=== PATIENT | female | born 1980 | race Caucasian/White ===

== ENCOUNTER 2018-11-09 14:30 | Emergency (ER) | payer MEDICAID ==
[~2018-11-09] VITALS: Ht 167.6 cm; Wt 72.7 kg
[2018-11-09 17:40] LABS: BASOPHILS % (AUTO) 0.5 % (0.0-2.0); EOSINOPHILS % (AUTO) 0.4 % (1.0-6.0); HEMATOCRIT 36.1 % (36-46); HEMOGLOBIN 12.5 g/dL (12.0-16.0); LYMPHOCYTES # (AUTO) 1.3 K/uL (1.0-4.8); LYMPHOCYTES % (AUTO) 16.6 % (22.0-44.0); MEAN CORPUSCULAR HGB CONC 34.5 G/dL (31.0-37.0); MEAN CORPUSCULAR VOLUME 93 fL (80-100); MONOCYTES # (AUTO) 0.6 K/uL (0.1-1.0); MONOCYTES % (AUTO) 7.2 % (2.0-9.0); NEUTROPHILS # (AUTO) 6.1 K/uL (1.8-7.7); NEUTROPHILS % (AUTO) 75.3 % (40.0-70.0); PLATELET COUNT (AUTO) 331 K/uL (150-450); RED CELL DISTRIBUTION WIDTH 12.8 % (11.5-14.5)
[2018-11-09] MEDS ORDERED: HALOPERIDOL 5 MG TABLET PO PRN (17:45)
[2018-11-09] MEDS ORDERED: ZOLPIDEM TARTRATE 10 MG TABLET PO PRN (17:45)
[2018-11-09] MEDS ORDERED: LORazepam 2 MG TABLET PO PRN (17:45)
[2018-11-09] MEDS ORDERED: ACETAMINOPHEN 325 MG TABLET PO PRN (17:45)
[2018-11-09] MEDS ORDERED: IBUPROFEN 400 MG TABLET PO PRN (17:45)
[2018-11-09 17:51] LABS: ANION GAP 11 mmol/L (8-16); CALCIUM, TOTAL 8.9 mg/dL (8.8-10.5); CARBON DIOXIDE 23 mmol/L (22-29); CHLORIDE 106 mmol/L (98-107); CREATININE 0.82 mg/dL (0.60-1.30); GLOMERULAR FILTR. RATE CALC > 60 mL/min (>60); GLUCOSE,RANDOM 91 mg/dL (70-110); POTASSIUM 3.8 mmol/L (3.5-5.1); SODIUM SERUM 140 mmol/L (136-145); UREA NITROGEN, BLOOD 13 mg/dL (7-18)
[2018-11-09 18:03] LABS: ALANINE AMINOTRANSFERASE 25 U/L (12-78); ALBUMIN 3.6 g/dL (3.4-5.0); ALKALINE PHOSPHATASE 55 U/L (46-116); ASPARTATE AMINOTRANSFERASE 26 U/L (15-37); BILIRUBIN,TOTAL 0.5 mg/dL (0.1-1.0); HCG,QUANTITATIVE < 1 mIU/mL (0-6)
[2018-11-09 19:27] LABS: APPEARANCE,URINE CLEAR (CLEAR); BILIRUBIN,URINE NEGATIVE (NEGATIVE); GLUCOSE, URINE (UA) NEGATIVE (NEGATIVE); KETONES,URINE NEGATIVE (NEGATIVE); LEUKOCYTE ESTERASE ,URINE NEGATIVE (NEGATIVE); NITRATE,URINE NEGATIVE (NEGATIVE); OCCULT BLOOD,URINE NEGATIVE (NEGATIVE); PH,URINE 6.5 (5.0-8.0); PROTEIN,URINE NEGATIVE (NEGATIVE); UROBILINOGEN,URINE 0.2 mg/dL (<=1.0)
[2018-11-09 19:31] LABS: AMPHET/METH SCREEN,URINE NEGATIVE (NEGATIVE); BARBITURATE SCREEN, URINE NEGATIVE (NEGATIVE); BENZODIAZEPINES SCREEN,URINE NEGATIVE (NEGATIVE); CANNABINOID SCREEN,URINE NEGATIVE (NEGATIVE); COCAINE SCREEN,URINE NEGATIVE (NEGATIVE); METHADONE SCREEN, URINE NEGATIVE (NEGATIVE); OPIATE SCREEN,URINE NEGATIVE (NEGATIVE)
[2018-11-09 19:32] LABS: BACTERIA,URINE Few /HPF (None Seen); PHENCYCLIDINE SCREEN,URINE NEGATIVE (NEGATIVE); RBC,URINE 0-2 /HPF (0-2); SQUAMOUS EPITHELIAL CELL,UR Moderate /LPF (None Seen); WBC,URINE 0-2 /HPF (0-5)
[2018-11-09 19:57] VITALS: BP 117/78
== END 2018-11-09 20:19 | disposition home or self-care (01) ==
LOC: EMS 14:31
DX: F43.10 Post-traumatic stress disorder, unspecified (principal); F41.9 Anxiety disorder, unspecified; F20.9 Schizophrenia, unspecified
CPT/HCPCS: 36415; 80053; 80307; 81001; 84702; 85025; 99285; G0480

== ENCOUNTER 2023-03-12 10:53 | Inpatient (IN) | payer MEDICAID ==
[~2023-03-12] VITALS: Ht 167.6 cm; Wt 59.0 kg
[2023-03-12 15:28] LABS: APPEARANCE,URINE HAZY (CLEAR); BILIRUBIN,URINE NEGATIVE (NEGATIVE); GLUCOSE, URINE (UA) NEGATIVE (NEGATIVE); KETONES,URINE NEGATIVE (NEGATIVE); LEUKOCYTE ESTERASE ,URINE LARGE (NEGATIVE); NITRATE,URINE NEGATIVE (NEGATIVE); OCCULT BLOOD,URINE NEGATIVE (NEGATIVE); PH,URINE 5.5 (5.0-8.0); PROTEIN,URINE NEGATIVE (NEGATIVE); SPECIFIC GRAVITIY, URINE 1.007 (1.003-1.030); UROBILINOGEN,URINE <=1.0 mg/dL (<=1.0)
[2023-03-12] MEDS ORDERED: LOPERAMIDE HCL 2 MG CAPSULE PO PRN (15:30)
[2023-03-12] MEDS ORDERED: ACETAMINOPHEN 325 MG TABLET PO PRN (15:30)
[2023-03-12] MEDS ORDERED: HydrOXYzine PAMOATE 50 MG CAPSULE PO PRN (15:30)
[2023-03-12] MEDS ORDERED: MAG HYDROX/AL HYDROX/SIMETH ES 30 ML SUSPENSION UDCUP PO PRN (15:30)
[2023-03-12] MEDS ORDERED: DiphenhydrAMINE HCL 50 MG/ML VIAL IM ONE (15:30)
[2023-03-12] MEDS ORDERED: HALOPERIDOL LACTATE 5 MG/ML VIAL IM ONE (15:30)
[2023-03-12] MEDS ORDERED: ZOLPIDEM TARTRATE 10 MG TABLET PO PRN (15:30)
[2023-03-12] MEDS ORDERED: PROMETHAZINE HCL 25 MG TABLET PO PRN (15:30)
[2023-03-12] MEDS ORDERED: TUBERCULIN, PURIFIED PROTEIN DERIVATIVE 5 TU/0.1 ML SYRINGE ID ONE (15:30)
[2023-03-12] MEDS ORDERED: MAGNESIUM HYDROXIDE SUSPENSION 30 ML UDCUP PO PRN (15:30)
[2023-03-12] MEDS ORDERED: LORazepam 2 MG/ML VIAL IM ONE (15:30)
[2023-03-12] MEDS ORDERED: OLANZapine 5 MG RAPDIS TABLET PO PRN (15:30)
[2023-03-12] MEDS ORDERED: GuaiFENesin/D-METHORPHAN [SUGAR-FREE] 200-20MG/10 ML SYRUP UDCUP PO PRN (15:30)
[2023-03-12 15:55] LABS: AMPHET/METH SCREEN,URINE NEGATIVE (NEGATIVE); BARBITURATE SCREEN, URINE NEGATIVE (NEGATIVE); BENZODIAZEPINES SCREEN,URINE NEGATIVE (NEGATIVE); CANNABINOID SCREEN,URINE POSITIVE (NEGATIVE); COCAINE SCREEN,URINE NEGATIVE (NEGATIVE); METHADONE SCREEN, URINE NEGATIVE (NEGATIVE); OPIATE SCREEN,URINE NEGATIVE (NEGATIVE); PHENCYCLIDINE SCREEN,URINE NEGATIVE (NEGATIVE)
[2023-03-12 15:57] LABS: BACTERIA,URINE Moderate /HPF (None Seen); RBC,URINE 0-2 /HPF (0-2); SQUAMOUS EPITHELIAL CELL,UR Few /LPF (None Seen)
[2023-03-12 16:03] LABS: COVID AG,FIA SOURCE NASOPHARYNGEAL
[2023-03-12 20:07] LABS: BASOPHILS % (AUTO) 0.5 % (0.0-2.0); EOSINOPHILS % (AUTO) 1.7 % (1.0-6.0); HEMATOCRIT 39.1 % (36-46); HEMOGLOBIN 13.2 g/dL (12.0-16.0); LYMPHOCYTES # (AUTO) 2.4 K/uL (1.0-4.8); LYMPHOCYTES % (AUTO) 28.2 % (22.0-44.0); MEAN CORPUSCULAR HEMOGLOBIN 33.3 pg (26.0-34.0); MEAN CORPUSCULAR HGB CONC 33.9 G/dL (31.0-37.0); MEAN CORPUSCULAR VOLUME 98 fL (80-100); MONOCYTES # (AUTO) 0.6 K/uL (0.1-1.0); MONOCYTES % (AUTO) 7.1 % (2.0-9.0); NEUTROPHILS # (AUTO) 5.3 K/uL (1.8-7.7); NEUTROPHILS % (AUTO) 62.5 % (40.0-70.0); PLATELET COUNT (AUTO) 350 K/uL (150-450); RED BLOOD CELL COUNT(AUTO) 3.98 MIL/uL (4.00-5.20); RED CELL DISTRIBUTION WIDTH 11.8 % (11.5-14.5)
[2023-03-12 20:16] LABS: ANION GAP 8 mmol/L (8-16); CALCIUM, TOTAL 8.6 mg/dL (8.8-10.5); CARBON DIOXIDE 25 mmol/L (22-29); CHLORIDE 102 mmol/L (98-107); CREATININE 0.86 mg/dL (0.60-1.30); GLOMERULAR FILTR. RATE CALC > 60 mL/min (>60); GLUCOSE,RANDOM 98 mg/dL (70-110); POTASSIUM 3.8 mmol/L (3.5-5.1); SODIUM SERUM 135 mmol/L (136-145)
[2023-03-12 20:22] LABS: ALBUMIN 3.4 g/dL (3.4-5.0); ALKALINE PHOSPHATASE 54 U/L (46-116); ASPARTATE AMINOTRANSFERASE 25 U/L (15-37); BILIRUBIN,TOTAL 0.6 mg/dL (0.1-1.0); TOTAL PROTEIN, SERUM 6.6 g/dL (6.4-8.2)
[2023-03-12 20:38] LABS: ALANINE AMINOTRANSFERASE 23 U/L (12-78)
[2023-03-12] MEDS: THIAMINE 100 MG TABLET PO SCH (20:49)
[2023-03-12] MEDS: MELATONIN 5 MG TABLET PO SCH (20:49)
[2023-03-12] MEDS: OLANZapine 5 MG RAPDIS TABLET PO SCH (20:50)
[2023-03-13] MEDS: CEPHALEXIN MONOHYDRATE 500 MG CAPSULE PO SCH ×2 (08:19→16:41)
[2023-03-13] MEDS: MULTIVITAMINS WITH MINERALS, THERAPEUTIC TABLET PO SCH (08:19)
[2023-03-13] MEDS: THIAMINE 100 MG TABLET PO SCH ×2 (08:19→16:41)
[2023-03-13] MEDS: OMEGA-3/DHA/EPA/FISH OIL 1,000 MG CAPSULE PO SCH (08:19)
[2023-03-13] MEDS: FOLIC ACID 1 MG TABLET PO SCH (08:20)
[2023-03-13] MEDS: NALTREXONE HCL 50 MG TABLET PO SCH (08:20)
[2023-03-13 08:21] LABS: HEMOGLOBIN A1C 4.5 % (3.8-5.6)
[2023-03-13] MEDS: LORazepam 2 MG TABLET PO PRN (08:21)
[2023-03-13 08:34] LABS: FREE T4 (FREE THYROXINE) 1.2 ng/dL (0.76-1.46); THYROID STIMULATING HORMONE 2.12 uIU/mL (0.36-3.74)
[2023-03-13 08:56] VITALS: BP 100/60; PULSE 87; RESP 18; TEMP 97.7; O2SAT 98
[2023-03-13 09:00] VITALS: BP 100/60; PULSE 87; RESP 18; TEMP 97.7; O2SAT 98
[2023-03-13] MEDS: OLANZapine 5 MG RAPDIS TABLET PO SCH (20:11)
[2023-03-13] MEDS: MELATONIN 5 MG TABLET PO SCH (20:11)
[2023-03-13 20:28] VITALS: BP 102/72; PULSE 75; RESP 18; TEMP 97.8; O2SAT 95
[2023-03-14] MEDS: LORazepam 2 MG TABLET PO PRN ×2 (06:21→16:18)
[2023-03-14 08:33] VITALS: BP 107/64; PULSE 100; RESP 18; TEMP 97.6; O2SAT 97
[2023-03-14] MEDS: FOLIC ACID 1 MG TABLET PO SCH (08:53)
[2023-03-14] MEDS: OMEGA-3/DHA/EPA/FISH OIL 1,000 MG CAPSULE PO SCH (08:53)
[2023-03-14] MEDS: MULTIVITAMINS WITH MINERALS, THERAPEUTIC TABLET PO SCH (08:53)
[2023-03-14] MEDS: CEPHALEXIN MONOHYDRATE 500 MG CAPSULE PO SCH ×2 (08:53→16:24)
[2023-03-14] MEDS: THIAMINE 100 MG TABLET PO SCH ×2 (08:53→16:18)
[2023-03-14] MEDS: NALTREXONE HCL 50 MG TABLET PO SCH (08:53)
[2023-03-14] MEDS ORDERED: OLAN5TAB94 PO (16:13)
[2023-03-14] MEDS ORDERED: OMEG-135 PO (16:13)
[2023-03-14] MEDS ORDERED: MELA5TAB40 PO (16:13)
[2023-03-14] MEDS ORDERED: NALT50TA PO (16:13)
[2023-03-14] MEDS ORDERED: OLAN10TA26 PO (16:15)
[2023-03-14] MEDS ORDERED: BUPR-50 PO (16:16)
[2023-03-14] MEDS: MELATONIN 5 MG TABLET PO SCH (20:11)
[2023-03-14 20:19] VITALS: BP 140/99; PULSE 103; RESP 18; TEMP 97.6; O2SAT 98
[2023-03-14] MEDS ORDERED: OLANZapine 10 MG RAPDIS TABLET PO SCH (21:00)
[2023-03-15 08:19] VITALS: BP 120/66; PULSE 79; RESP 16; TEMP 97.6; O2SAT 98
[2023-03-15] MEDS: NALTREXONE HCL 50 MG TABLET PO SCH (08:34)
[2023-03-15] MEDS: THIAMINE 100 MG TABLET PO SCH ×2 (08:34→16:31)
[2023-03-15] MEDS: OMEGA-3/DHA/EPA/FISH OIL 1,000 MG CAPSULE PO SCH (08:34)
[2023-03-15] MEDS: FOLIC ACID 1 MG TABLET PO SCH (08:34)
[2023-03-15] MEDS: CEPHALEXIN MONOHYDRATE 500 MG CAPSULE PO SCH ×2 (08:34→16:31)
[2023-03-15] MEDS: MULTIVITAMINS WITH MINERALS, THERAPEUTIC TABLET PO SCH (08:35)
[2023-03-15] MEDS ORDERED: BuPROPion HCL XL 150 MG ER TABLET PO SCH (09:00)
[2023-03-15] MEDS: LORazepam 2 MG TABLET PO PRN (10:05)
[2023-03-15 12:26] VITALS: BP 122/73; PULSE 105; RESP 18; TEMP 98; O2SAT 99
[2023-03-15 12:52] VITALS: BP 130/80; PULSE 105; RESP 18; TEMP 98.2; O2SAT 99
[2023-03-15 13:00] VITALS: BP 118/77; PULSE 100; RESP 18; TEMP 98; O2SAT 99
[2023-03-15 13:50] VITALS: BP 120/74; PULSE 96; RESP 16; TEMP 98.2; O2SAT 99
[2023-03-15 14:20] VITALS: BP 124/68; PULSE 98; RESP 16; TEMP 98; O2SAT 100
[2023-03-15] MEDS ORDERED: CEPH-558 PO (17:29)
== END 2023-03-15 18:03 | disposition home or self-care (01) | DRG 750 ==
LOC: EMS 10:53 → EDUNIT# 10:53 → B3A 22:04
PROVIDERS: ADMIT Psychiatry & Neurology Psychiatry; ATTEND Psychiatry & Neurology Psychiatry
DX: F25.9 Schizoaffective disorder, unspecified (principal); F12.90 Cannabis use, unspecified, uncomplicated; Z20.822 Contact with and (suspected) exposure to COVID-19; F32.A Depression, unspecified; F41.9 Anxiety disorder, unspecified; G47.00 Insomnia, unspecified; N39.0 Urinary tract infection, site not specified; K59.00 Constipation, unspecified; Z72.0 Tobacco use; Z55.9 Problems related to education and literacy, unspecified; Z71.6 Tobacco abuse counseling; Z59.9 Problem related to housing and economic circumstances, unspecified; Z63.9 Problem related to primary support group, unspecified; Z65.3 Problems related to other legal circumstances
CPT/HCPCS: 80053; 80061; 80307; 81001; 83036; 84439; 84443; 84703; 85025; 86592; 87086; 87186; 87491; 87591; 99291; G0480; J1200; J1630; J2060; Q9967